=== PATIENT | male | born 1985 | race Caucasian/White ===

== ENCOUNTER 2020-11-12 04:55 | Emergency (ER) | payer SELFPAY ==
[2020-11-12 05:07] VITALS: BP 133/92; PULSE 80; RESP 14; TEMP 36.7; O2SAT 98; BMI 21.1
--- NOTE | 2020-11-12 05:19 | W.ED.SKABFB ---
HPI - Skin/Abscess/Foreign Bdy General: Chief complaint: General Medical Stated complaint: rash x 8 days Time Seen by Provider: 11/12/20 05:18 History of Present Illness: HPI narrative: Mr. Puckett is a 35-year-old gentleman without significant past medical history presents emergency department due to rash. [place] and that evening after showering developed itching scattered lesions on his lower extremities. These have since persisted. He has tried over the counter topical medications without significant relief. Intensity of itching is moderate to severe. No signs of systemic illness or superimposed infection. No history of similar. No other major changes to health, exacerbating, or relieving factors identified. Review of Systems General: Reports: 10 or more systems reviewed and unremarkable except in HPI and below Narrative: CONSTITUTIONAL: denies fever, fatigue, weakness EYES - denies pain, denies loss of vision EARS - denies ear issues. NOSE - denies congestion or rhinorrhea. THROAT - denies sore throat or difficulty swallowing. CARDIOVASCULAR - denies chest pain and palpitations RESPIRATORY - denies shortness of breath and cough GASTROINTESTINAL - denies abdominal pain, no nausea vomiting, no changes in bowel habits GENITOURINARY - denies dysuria or urinary frequency MUSCULOSKELETAL- denies deformity or pain SKIN -see HPI NEUROLOGIC - denies focal weakness or sensory changes HEMATOLOGIC/LYMPHATIC - denies easy bruising or lymphadenopathy. Physical Exam Narrative: EXAM NARRATIVE: GENERAL/CONSTITUTIONAL - well-appearing. No acute distress. Eyes - PERRL, no conjunctival injection ENMT - Atraumatic external nose and ears. Moist mucous membranes NECK - supple. trachea midline CARDIOVASCULAR - regular rate and rhythm. Peripheral pulses 2+ and equal RESPIRATORY -clear to auscultation bilaterally. No retractions or accessory muscle use. ABDOMEN/GI - Nontender/Nondistended. No tenderness to percussion or evidence of peritonitis MSK - Extremities without obvious deformity or tenderness to palpation SKIN -scattered nonvesicular skin lesions with various stages of irritation consistent with chiggers NEURO - alert and appropriately oriented. strength and sensation intact. Moves all extremities equally. PSYCH - Appropriate mood and affect Course ED course: - Patient was seen and evaluated by me at bedside -Vital signs obtained - Initial evaluation notable for no acute distress, nontoxic appearance. Lesions consistent with chiggers. -Atarax ordered - Upon serial reexamination after treatment the patient was minimally improved - Based on patient history, evaluation, labs, and imaging as interpreted the most likely cause of the patient's condition is insect lesions - The results of ED evaluation were discussed with the patient including prescriptions and/or symptomatic cares (if applicable) including appropriate and responsible use, followup plan, and return precautions. The patient verbalized understanding and felt safe for discharge. - Patient discharged in satisfactory condition. Vital Signs: Vital signs: Vital Signs Temperature 98.1 F 11/12/20 06:25 Pulse Rate 87 11/12/20 06:25 Respiratory Rate 14 11/12/20 06:25 Blood Pressure 135/85 11/12/20 06:25 Pulse Oximetry 98 11/12/20 06:25 MDM - Skin/Abscess/Foreign Bdy Medical Records: Attestation: I reviewed the patient's medical records. Lab Data: Attestation: I reviewed the patient's lab results. Discharge Plan Discharge Patient Disposition: Home Clinical Impression: Bite, chigger Condition: Stable Prescriptions: New prednisone 20 mg tablet 40 mg PO DAILY 5 Days RF: 0 Discharge Orders: Discharge ED (Routine); Ordered 11/12/20 Ordered By: Corby Dumont Discharge Diet: Usual diet Discharge Activity: Resume usual activity Patient Instructions: Insect Bite or Sting (ED) Activity Restrictions/Additional Instructions: Thank you for visiting the emergency department. You were seen and evaluated for insect bite. The most likely cause is chiggers. You will be given a prescription. You may continue to use topical ointments. Please follow-up with your primary care provider. Please return to the emergency department for any reason that you are concerned out of feel needs emergency department evaluation. Coding Level of Care Code ED [employer] Offbearer for Danyel Amador
[2020-11-12 05:20] VITALS: BP 133/92; PULSE 85; RESP 14; TEMP 36.7; O2SAT 98
[2020-11-12 06:25] VITALS: BP 135/85; PULSE 87; RESP 14; TEMP 36.7; O2SAT 98
== END 2020-11-12 06:24 | disposition home or self-care (01) ==
PROVIDERS: Emergency Provider Emergency Medicine
DX: B88.0 Other acariasis (principal)
CPT/HCPCS: 99282; J3490